=== PATIENT | male | born 1960 | race Caucasian/White ===

== ENCOUNTER 2017-02-02 23:39 | Emergency (ER) | payer OTHER, MEDICAID ==
[~2017-02-02] VITALS: Ht 167.6 cm; Wt 66.0 kg
[~2017-02-02 23:39] MED LIST: DOCU-138; TYLENOL
[2017-02-02 23:41] VITALS: BP 123/60
== END 2017-02-03 00:40 | disposition left against medical advice (07) ==
LOC: ER 23:39
DX: Z53.21 Procedure and treatment not carried out due to patient leaving prior to being seen by health care provider (principal)
CPT/HCPCS: 93005

== ENCOUNTER 2017-07-11 11:21 | Emergency (ER) | payer OTHER, MEDICAID ==
[~2017-07-11] VITALS: Ht 170.2 cm; Wt 70.0 kg
[2017-07-11 11:29] VITALS: BP 210/84
== END 2017-07-11 13:20 | disposition left against medical advice (07) ==
LOC: ER 12:35
DX: Z04.8 Encounter for examination and observation for other specified reasons (principal); Z53.21 Procedure and treatment not carried out due to patient leaving prior to being seen by health care provider

== ENCOUNTER 2018-04-13 11:16 | Emergency (ER) | payer OTHER, MEDICAID ==
[~2018-04-13] VITALS: Ht 162.6 cm; Wt 54.0 kg
[~2018-04-13 11:16] MED LIST changes: -DOCU-138; +FURO20TA4 PO; +IBUP-516 PO; +TRAM100C3 PO; -TYLENOL
[2018-04-13 12:24] LABS: CLARITY URINE CLEAR (CLEAR); COLOR URINE YELLOW (YELLOW); KETONES URINE NEGATIVE (NEGATIVE); LEUKOCYTE ESTERASE URINE NEGATIVE (NEGATIVE); NITRITE URINE NEGATIVE (NEGATIVE); OCCULT BLOOD URINE 1+ (NEGATIVE); PROTEIN URINE NEGATIVE (NEGATIVE); SPECIFIC GRAVITY URINE 1.016 (1.005-1.030); UROBILINOGEN URINE 0.2 E.U./dL (0.2-1.0)
[2018-04-13] MEDS ORDERED: IBUPROFEN 400MG TABLET PO ONE (18:00)
[2018-04-13 18:43] VITALS: BP 168/66
== END 2018-04-13 18:14 | disposition home or self-care (01) ==
LOC: ER 11:16
DX: N48.89 Other specified disorders of penis (principal); I10 Essential (primary) hypertension; Z88.1 Allergy status to other antibiotic agents; Z88.8 Allergy status to other drugs, medicaments and biological substances; Z79.899 Other long term (current) drug therapy
CPT/HCPCS: 76857; 76870; 81003; 87086; 93976; 99285

== ENCOUNTER 2021-05-06 01:22 | Emergency (ER) | payer OTHER, MEDICAID ==
[~2021-05-06] VITALS: Ht 165.1 cm; Wt 55.0 kg
[~2021-05-06 01:22] MED LIST changes: +IBUP-2778 PO; -IBUP-516 PO
[2021-05-06] MEDS ORDERED: MORPHINE SULFATE 4 MG/ML CPJ (NOT FOR IM USE) IV STA (02:03)
[2021-05-06] MEDS ORDERED: ASPIRIN 81MG TABLET PO ONE (02:15)
[2021-05-06 02:34] LABS: HEMATOCRIT. 30.8 % (42.0-52.0); HEMOGLOBIN. 9.5 g/dL (14.0-18.0); MEAN CORPUSCULAR HEMOGLOBIN 20.9 pg (28.0-32.0); MEAN CORPUSCULAR VOLUME 67.7 fL (80.0-94.0); MEAN PLATELET VOLUME 9.4 fl (7.4-10.4); PLATELET 168 x1000/uL (130-400); RED BLOOD CELL COUNT 4.55 mill/uL (4.7-6.1); RED CELL DISTRIBUTION WIDTH 21.9 % (11.6-14.6)
[2021-05-06 02:40] LABS: CHLORIDE 109 mEq/L (98-107)
[2021-05-06] MEDS ORDERED: FUROSEMIDE 20MG/2ML VIAL IVP ONE (03:45)
[2021-05-06 04:13] LABS: PLATELET ESTIMATE NORMAL
[2021-05-06 05:27] LABS: CLARITY URINE CLEAR (CLEAR); COLOR URINE YELLOW (YELLOW); KETONES URINE NEGATIVE (NEGATIVE); LEUKOCYTE ESTERASE URINE NEGATIVE (NEGATIVE); NITRITE URINE NEGATIVE (NEGATIVE); OCCULT BLOOD URINE NEGATIVE (NEGATIVE); PH URINE 5.5 (4.5-8.0); PROTEIN URINE TRACE (NEGATIVE); SPECIFIC GRAVITY URINE 1.017 (1.005-1.030)
[2021-05-06 06:02] VITALS: BP 128/85
== END 2021-05-06 07:09 | disposition left against medical advice (07) ==
LOC: ER 01:22
DX: I11.0 Hypertensive heart disease with heart failure (principal); I50.9 Heart failure, unspecified; R10.9 Unspecified abdominal pain; D64.9 Anemia, unspecified; I48.91 Unspecified atrial fibrillation; Z88.3 Allergy status to other anti-infective agents; Z88.8 Allergy status to other drugs, medicaments and biological substances; Z79.01 Long term (current) use of anticoagulants
CPT/HCPCS: 36415; 71045; 76705; 80053; 81003; 83690; 83880; 84484; 85025; 93005; 96374; 96375; 99285; J1940; J2270

== ENCOUNTER 2021-07-25 08:26 | Emergency (ER) | payer OTHER, MEDICAID ==
[~2021-07-25] VITALS: Ht 165.1 cm; Wt 50.0 kg
[2021-07-25 08:33] VITALS: BP 123/69
== END 2021-07-25 17:44 | disposition left against medical advice (07) ==
LOC: ER 08:26
DX: Z53.21 Procedure and treatment not carried out due to patient leaving prior to being seen by health care provider (principal)
CPT/HCPCS: 93005